=== PATIENT | female | born 1960 | race African-American/Black ===

== ENCOUNTER 2024-03-01 14:32 | Emergency (ER) | payer OTHER ==
[2024-03-01 16:10] LABS: HEMATOCRIT 47.3 % (32.4-45.2); HEMOGLOBIN 15.1 G/dL (10.7-15.3); MCH 29.4 pg (25.7-33.7); MCHC 31.9 g/dl (32.0-36.0); MEAN CELL VOLUME 92.2 fl (80-96); MEAN PLT VOLUME 7.8 fl (7.5-11.1); PLATELET COUNT 302.2 10^3/uL (134-434); RBC 5.13 10^6/uL (3.60-5.2); RDW 13.3 % (11.6-15.6); WHITE BLOOD COUNT 7.4 10^3/uL (4.0-10.8)
[2024-03-01 16:16] LABS: PLATELET ESTIMATE ADEQUATE
[2024-03-01 16:17] LABS: INR 1.01 (0.83-1.09); PROTHROMBIN TIME (PATIENT) 11.5 SEC (9.7-13.0)
[2024-03-01 16:19] LABS: ALBUMIN 4.6 g/dl (3.4-5.0); ALK PHOS 40 U/L (45-117); ANION GAP 7 mmol/L (4-13); BILIRUBIN,TOTAL 0.6 mg/dl (0.2-1); CALCIUM 9.8 mg/dl (8.5-10.1); CHLORIDE 102 mmol/L (98-107); CO2 31 mmol/L (21-32); CREATININE 0.8 mg/dl (0.6-1.3); GLUCOSE,RANDOM 93 mg/dl (74-106); MAGNESIUM 1.9 mg/dL (1.8-2.4); POTASSIUM 3.7 mmol/L (3.5-5.1); SGOT/AST 15 U/L (15-37); SGPT/ALT 11 U/L (7-52); SODIUM 140 mmol/L (136-145); TOT PROT 7.2 g/dl (6.4-8.2)
[2024-03-01 17:57] VITALS: BP 127/77; PULSE 81; RESP 16; TEMP 98.6; BMI 24.4
== END 2024-03-01 21:34 | disposition home or self-care (01) ==
LOC: FER 14:32
DX: R07.89 Other chest pain (principal); Z20.822 Contact with and (suspected) exposure to COVID-19
CPT/HCPCS: 0241U-QW; 36415; 71275-TC; 80053; 81003; 83735; 83880; 84484; 85027; 85610; 85730; 86850; 86900; 86901; 87077; 87086; 93005; 99285-25; Q9967